=== PATIENT | female | born 1950 | race Caucasian/White ===

== ENCOUNTER 2016-05-15 08:55 | Day surgery (SDC) | payer OTHER ==
[2016-05-11 09:29] VITALS: BMI 17.8
[2016-05-15] MEDS: FLURBIPROFEN 0.03% OPHTH SOLN 2.5 ML BOTTLE ONE ×5 (09:45→10:05)
[2016-05-15] MEDS: PHENYLEPHRINE 2.5% OPHTH SOLN 15 ML BOTTLE ONE ×5 (09:45→10:05)
[2016-05-15] MEDS: CYCLOPENTOLATE HCL 1% OPHTH SOLN 2 ML BOTTLE ONE ×5 (09:45→10:05)
[2016-05-15] MEDS: TROPICAMIDE 1% OPHTH SOLN 15 ML BOTTLE ONE ×5 (09:45→10:05)
[2016-05-15] MEDS: GENTAMICIN SULFATE 0.3% OPHTHALMIC (EYE DROPS) 5ML BOTTLE ONE ×5 (09:45→10:05)
[2016-05-15] MEDS ORDERED: ACETAMINOPHEN 325 MG TABLET (FP) PO PRN (10:57)
[2016-05-15] MEDS ORDERED: MIDAZOLAM HCL 2 MG/2 ML SINGLE DOSE VIAL ONE (11:07)
[2016-05-15] MEDS ORDERED: BSS (NA/CA/MG/K) BALANCED SALT SOLUTION OPHTH SOLN 15 ML BOTTLE ONE (12:06)
[2016-05-15 12:52] VITALS: TEMP 98.5
[2016-05-15 12:59] VITALS: BP 125/63; PULSE 68
--- NOTE | 2016-05-16 21:11 | OP ---
DATE OF OPERATION: 05/15/2016 DATE OF DICTATION: 05/16/2016 TITLE OF PROCEDURE: Planned extracapsular cataract extraction phacoemulsification surgery, posterior chamber lens implant in the right eye with a filtering procedure. PREOPERATIVE DIAGNOSIS: Glaucoma right eye, cataract right eye. POSTOPERATIVE DIAGNOSIS: Glaucoma right eye, cataract right eye. SURGEON: Lukas Waldrop M.D. SENIOR SYSTEMS SOFTWARE ENGINEER SURGEON: Jeanie Mackenzie M.D. ANESTHESIA: Local standby. JAVA PORTAL DEVELOPER: Beverly , TERMINAL MAKE UP OPERATOR COMPLICATIONS: None. FINDINGS OF PROCEDURE: After successful peribulbar anesthesia was given to the right eye, the patient was prepped and draped in the usual manner to expose the right eye. Tegaderm strips and a lid speculum were inserted to open the right eye and then the microscope brought into position over the right eye. Superior fornix based flap was then fashioned for 12 mm with Godfrey scissors and 0.12 forceps and hemostasis achieved with electrocautery. Limbal groove was fashioned for 3 mm with a crescent blade and dissected anterior to clear cornea. Then a 3-mm blade was used to enter the anterior chamber, and under Viscoat 360 degree anterior capsulotomy was performed and the leaflet removed from the eye. Then phacoemulsification of entire nucleus was then done in approximately 2 minutes' time followed by irrigation, aspiration of all cortical material, leaving intact posterior capsule and a red reflex present. Provisc was injected in the posterior chamber to deep in the posterior capsule, and then the implant was inspected carefully with microscope and found to be free of defects, debris or flaws. It was then folded, placed in the Provisc-filled cartridge, and the cartridge in the injector, and the implant was injected into the eye such that the inferior haptic was in the inferior capsular bag and superior haptic was in the superior capsular bag and rotated in a horizontal position with a Sinskey hook. Attention was focused to the trabecular meshwork where a block measuring 1.5 x 3.5 mm was excised using Vannas scissors, micro sharp blade and 0.12 forceps, and then peripheral iridotomy was performed at 1 o'clock using the same instruments, and then the Provisc was aspirated out, replaced with Miochol, Miostat, and BSS. The wound was closed with a loosely tied 10-0 Ethilon interrupted suture, and the conjunctival-tenon flap reapproximated. It should be noted that as I mentioned the Provisc was aspirated and replaced with Miochol, Miostat, and BSS, and filtration was seen to be established with side port irrigation so a shallow bleb was forming superiorly. At this point, the implant was fixated in the capsular bag, centrally located with a round pupil intact posterior capsule and a red reflex and a shallow filtering bleb present. Topical Betoptic S and Maxitrol ophthalmic suspensions were placed as was bacitracin, polymyxin B, ophthalmic ointment. The Tegaderm strips and the lid speculum were removed from the lids, the lids were closed, and a patch and shield placed on the eye. The patient was then discharged from the operating room into the recovery area in good condition, having tolerated the procedure well. Atul [id number]
== END 2016-05-15 12:55 | disposition home or self-care (01) ==
LOC: FASU 08:55
PROVIDERS: ATTEND Ophthalmology
PROC: 08123J4 Bypass Right Anterior Chamber to Sclera with Synthetic Substitute, Percutaneous Approach (ICD-10-PCS; 2016-05-15)
PROC: 08RJ3JZ Replacement of Right Lens with Synthetic Substitute, Percutaneous Approach (ICD-10-PCS; principal; 2016-05-15 11:26)
DX: H26.8 Other specified cataract (principal); H40.89 Other specified glaucoma

== ENCOUNTER 2016-06-19 08:51 | Day surgery (SDC) | payer OTHER ==
[2016-06-15 10:26] VITALS: BMI 17.8
[2016-06-19] MEDS: PHENYLEPHRINE 2.5% OPHTH SOLN 15 ML BOTTLE ONE ×2 (09:55→10:00)
[2016-06-19] MEDS: FLURBIPROFEN 0.03% OPHTH SOLN 2.5 ML BOTTLE ONE ×2 (09:55→10:00)
[2016-06-19] MEDS: GENTAMICIN SULFATE 0.3% OPHTHALMIC (EYE DROPS) 5ML BOTTLE ONE ×2 (09:55→10:00)
[2016-06-19] MEDS: TROPICAMIDE 1% OPHTH SOLN 15 ML BOTTLE ONE ×2 (09:55→10:00)
[2016-06-19] MEDS: CYCLOPENTOLATE HCL 1% OPHTH SOLN 2 ML BOTTLE ONE ×2 (09:55→10:00)
[2016-06-19] MEDS ORDERED: ACETAMINOPHEN 325 MG TABLET (FP) PO PRN (10:58)
[2016-06-19 14:40] VITALS: TEMP 97.5
[2016-06-19 14:57] VITALS: BP 120/70; PULSE 60
--- NOTE | 2016-06-20 09:51 | OP ---
DATE OF OPERATION: 06/19/2016 TITLE OF THE PROCEDURE: Planned extracapsular cataract extraction, phacoemulsification, insertion of posterior chamber lens implant, and a filtering procedure of the left eye. SURGEON: Lukas Waldrop MD ANESTHESIA: Standby. ANESTHESIOLOGIST: Tamia Whittington MD COMPLICATIONS: None. PREOPERATIVE DIAGNOSIS: Cataract, left eye, glaucoma, left eye. POSTOPERATIVE DIAGNOSIS: Cataract, left eye, glaucoma, left eye. FINDINGS AND PROCEDURES: After successful peribulbar anesthesia was given, the patient was prepped and draped in the usual manner. I exposed the left eye. The lid speculum was inserted. The microscope brought in a position over the eye. Superior fornix-based flap was then fashioned for 12 mm using Godfrey scissors, 0.12 forceps, and hemostasis achieved with electrocautery. A limbal groove was then fashioned for 3 mm with the crescent blade, dissected anterior into clear cornea, and then, a 3-mm blade was used to enter the anterior chamber. Then, under Viscoat, a 360-degree anterior capsulotomy was performed and the leaflet removed without complications. Phacoemulsification of the entire nucleus was then done in approximately 2 minutes time in a chop technique and this was followed by irrigation and aspiration of all cortical material leaving intact posterior capsule and a red reflex. Provisc was in the posterior chamber to deepen the posterior capsule, and then the implant was inspected carefully with the microscope, found to be free of defects, debris, and flaws. It was then folded, placed in the Provisc-filled cartridge, the cartridge placed in the injector, and the implant was injected into the eye such that the inferior haptic was in the inferior capsular bag and the superior haptic was in the superior capsular bag and rotated in the horizontal position with the Sinskey hook. The Provisc was then aspirated out, replaced with Miochol and Miostat and BSS. Prior to this, attention was focused to the trabecular mesh work where a block measuring 1 x 3 mm was excised using Vannas scissors, 0.12 forceps, and a Micro-Sharp blade, and this was followed by an iridotomy at 1 o'clock using the same instruments. This was followed by the irrigation and aspiration of the Provisc with replacement of BSS, Miochol, and Miostat. Then, the flap was closed with one loosely tied 10-0 Ethilon interrupted suture. The conjunctival tenon flap was approximated. At this point, it could be shown that a bleb was forming superiorly after injection from temporal side-port incision. At this point, the implant was fixated in the capsular bag, centrally located with the round pupil intact, posterior capsule red reflex and a bleb present. Topical Betoptic S and Maxitrol ophthalmic suspensions were placed as was Bacitracin, Polymyxin B ophthalmic ointment to the left eye. The speculum and Tegaderm strips were removed from the lids. The lids were closed, and a patch and shield placed on the eye, and the patient was then discharged from the operating room to the recovery area in good condition having tolerated the procedure well. Atul [id number]
== END 2016-06-19 13:15 | disposition home or self-care (01) ==
LOC: FASU 08:51
PROVIDERS: ATTEND Ophthalmology
PROC: 08133Z4 Bypass Left Anterior Chamber to Sclera, Percutaneous Approach (ICD-10-PCS; 2016-06-19)
PROC: 08RK3JZ Replacement of Left Lens with Synthetic Substitute, Percutaneous Approach (ICD-10-PCS; principal; 2016-06-19 11:38)
DX: H26.8 Other specified cataract (principal); H40.9 Unspecified glaucoma